=== PATIENT | female | born 1960 | race African-American/Black ===

== ENCOUNTER 2018-05-05 00:59 | Emergency (ER) | payer SELFPAY ==
[~2018-05-05] VITALS: Ht 157.5 cm; Wt 89.8 kg
--- NOTE | 2018-05-05 00:59 | NUR ---
PT BIB [facility], PREBOOK. TAKEN TO CHAIR E
[2018-05-05 01:00] VITALS: BP 168/112
--- NOTE | 2018-05-05 01:12 | NUR ---
Dr. Gold evaluating patient
[2018-05-05] MEDS ORDERED: ENALAPRIL 10 MG TAB PO ONE (01:15)
[2018-05-05] MEDS ORDERED: cloNIDine 0.1 MG TAB PO ONE (02:05)
[2018-05-05] MEDS ORDERED: IBUPROFEN 800 MG TAB ONE (02:14)
--- NOTE | 2018-05-05 02:30 | NUR ---
PT BP WAS 159/105, OK TO BOOK PER ER MD.
[2018-05-05 02:40] VITALS: BP 159/105
--- NOTE | 2018-05-05 02:40 | NUR ---
Patient discharged with v/s stable. Written and verbal after care instructions given and explained. Patient verbalized understanding. Police with in custody. All questions addressed prior to discharge. Advised to follow up with PMD.
== END 2018-05-05 02:40 ==
LOC: MED 00:59
DX: I10 Essential (primary) hypertension (principal)
CPT/HCPCS: 99283